=== PATIENT | female | born 1945 | race Asian ===

== ENCOUNTER → 2017-02-11 | Outpatient (CLI) | payer OTHER ==
[~2017-02-11] VITALS: Ht 149.9 cm; Wt 48.1 kg
[~2017-02-11] MED LIST: BREO ELLIPTA I1 EACH IH; CARAFATE1 GM PO; CITRACAL D + H1 EACH PO; CRESTOR10 MG PO; CRESTOR5 MG PO; DAILY MULTIPLE1 EACH PO; INCRUSE ELLI62.5 MCG IH; KEFLEX250 MG PO; MULTIPLE VITAM1 EAC1 PO; PRILOSEC20 MG PO; PROBIOTIC1 EAC2 PO
[2017-02-11 14:33] LABS: HEMATOCRIT 41.6 % (36.0-46.0); MCH 31.6 PG (29.0-34.0); MCHC 33.4 G/DL (30.0-36.0); MCV 94.5 FL (83-99); MEAN PLAT.VOLUME 8.9 uM^3 (9.5-12.4); PLATELET COUNT 215 K/uL (156-360); RBC DIS.WIDTH-CV 12.3 % (11.8-14.6); WHITE BLOOD COUNT 6.1 K/uL (4.1-10.2)
[2017-02-11 14:50] LABS: INTER. NORMALIZED RATIO 0.9
[2017-02-11 14:52] LABS: PTT 34.6 SEC (25-37)
== END | disposition home or self-care (01) ==
LOC: AMB 01-21 14:00
PROVIDERS: Internal Medicine Pulmonary Disease
PROC: 0B9L8ZX Drainage of Left Lung, Via Natural or Artificial Opening Endoscopic, Diagnostic (ICD-10-PCS; principal; 2017-02-11)
DX: R91.1 Solitary pulmonary nodule (principal); J47.9 Bronchiectasis, uncomplicated; J44.9 Chronic obstructive pulmonary disease, unspecified; Z86.010 Personal history of colon polyps; I34.1 Nonrheumatic mitral (valve) prolapse; Z86.19 Personal history of other infectious and parasitic diseases; Z90.710 Acquired absence of both cervix and uterus; Z91.041 Radiographic dye allergy status; Z88.6 Allergy status to analgesic agent; Z88.2 Allergy status to sulfonamides; Z88.0 Allergy status to penicillin
CPT/HCPCS: 85027; 85610; 85730; 87070; 87102; 87116; 87205; 87206; 88108; J0461; J2175; J2250; J2550; J3010